=== PATIENT | male | born 1965 | race African-American/Black ===

== ENCOUNTER 2022-03-31 04:45 | Emergency (ER) | payer SELFPAY ==
[~2022-03-31] VITALS: Ht 185 cm; Wt 77.1 kg
[2022-03-31] MEDS ORDERED: NS IV 1000 ML 1,000 ML IV SCH (05:15)
--- NOTE | 2022-03-31 05:19 | ED General ---
General Chief Complaint: Respiratory Problems Stated Complaint: TROUBLE BREATHING Nursing Triage Note: Pt reports SOA x 1 week. Pt was seen at [facility] 3-4 days ago and tested - for covid. Denies CP, fever, or n/v. Source of Information: Patient History of Present Illness Date Seen by Provider: Mar 31, 2022 Time Seen by Provider: 04:48 Initial Comments 56-year-old male presenting with complaints of shortness of breath for over a week. He reports being seen at a [facility] 3 to 4 days ago and was tested negative for COVID at that time. He has been traveling a lot recently had been on a plane as well as a bus. He denies a pain or swelling in his legs. He feels like his abdomen is bloated and like he might be constipated. He states he has been having bowel movements but feels like his belly is full and has not been passing as much stool as usual. He denies fever or chills. He has increased shortness of breath when he tries to lay down. Exertion also makes him more short of breath. He denies having any history of COPD, asthma out, heart failure, high blood pressure, diabetes. He states he takes ctby-ltp-beukjdf medicine recently for his cough and shortness of breath but he has not been taking any prescription medications. Timing/Duration: 1 Week Severity: Moderate Modifying Factors: worse with Movement (activity makes him more short of breath) Associated Systoms: No Chest Pain; Cough; No Diaphoresis, No Fever/Chills, No Headaches, No Loss of Appetite; Malaise; No Nausea/Vomiting, No Rash, No Seizure; Shortness of Air; No Syncope, No Weakness Allergies and Home Medications Allergies Coded Allergies: No Known Allergies (Verified Allergy, Unknown, 03/31/22) Patient Home Medication List Home Medication List Reviewed: Yes Azithromycin (Azithromycin) 500 Mg Tablet, 500 MG PO DAILY Prescribed by: RICKI LLANES on 03/31/22740 Furosemide (Furosemide) 40 Mg Tablet, 40 MG PO DAILY Prescribed by: RICKI ZAIDIRT on 03/31/22740 Potassium Chloride (K-Tab ER) 20 Meq Tablet.er, 20 MEQ PO DAILY Prescribed by: RICKI LLANES on 03/31/22740 Review of Systems Review of Systems Constitutional: see HPI; No chills, No fever EENTM: No epistaxis, No nose congestion Respiratory: cough, dyspnea on exertion; No hemoptysis; short of breath; No s tridor, No wheezing Cardiovascular: No chest pain, No edema Gastrointestinal: see HPI Genitourinary: no symptoms reported Musculoskeletal: no symptoms reported Skin: No rash Psychiatric/Neurological: Denies Headache Hematologic/Lymphatic: Denies Blood Clots Past Niouopj-Qifvjq-Cfxwxf Hx Patient Social History Tobacco Use?: No Use of E-Cig and/or Vaping dev: No Substance use?: No Alcohol Use?: No Pt feels they are or have been: No Immunizations Up To Date First/Initial COVID19 Vaccinat: J&J November 2020 Physical Exam Vital Signs Vital Signs - First Documented 03/31/22 04:50 Temp 36.0 Pulse 106 Resp 20 B/P (MAP) 157/116 (130) Pulse Ox 98 O2 Delivery Room Air Capillary Refill : Less Than 3 Seconds Height, Weight, BMI Height: '" Weight: lbs. oz. kg; 22.00 BMI Method: General Appearance: No Apparent Distress, WD/WN HEENT: PERRL/EOMI, Pharynx Normal, Moist Mucous Membranes Neck: Full Range of Motion, Normal Inspection, Non Tender, Supple Respiratory: Chest Non Tender, Lungs Clear, Normal Breath Sounds, No Accessory Muscle Use, No Respiratory Distress Cardiovascular: No Edema, Normal Peripheral Pulses, Tachycardia Gastrointestinal: No Pulsatile Mass, Non Tender, Soft, Abnormal Bowel Sounds (Hyperactive) Rectal: Deferred Extremity: Normal Capillary Refill, Normal Inspection, Non Tender, No Calf Tenderness, No Pedal Edema Neurologic/Psychiatric: Alert, Oriented x3, pack worker supervisor II-XII Norm as Tested Skin: Normal Color, Warm/Dry Progress/Results/Core Measures Suspected Sepsis SIRS Temperature: Pulse: 106 Respiratory Rate: 20 Laboratory Tests 03/31/22 05:15: White Blood Count 10.2 Blood Pressure 157 /116 Mean: 130 Laboratory Tests 03/31/22 05:15: Creatinine 1.12, INR Comment 1.0, Platelet Count 273, Total Bilirubin 1.0 Results/Orders Lab Results Laboratory Tests Test 03/31/22 05:15 03/31/22 05:18 03/31/22 05:40 Range/Units White Blood Count 10.2 4.3-11.0 10^3/uL Red Blood Count 4.04 L 4.30-5.52 10^6/uL Hemoglobin 13.0 L 13.3-17.7 g/dL Hematocrit 38 L 40-54 % Mean Corpuscular Volume 95 80-99 fL Mean Corpuscular Hemoglobin 32 25-34 pg Mean Corpuscular Hemoglobin Concent 34 32-36 g/dL Red Cell Distribution Width 13.4 10.0-14.5 % Platelet Count 273 130-400 10^3/uL Mean Platelet Volume 10.8 9.0-12.2 fL Immature Granulocyte % (Auto) 0 % Neutrophils (%) (Auto) 63 42-75 % Lymphocytes (%) (Auto) 23 12-44 % Monocytes (%) (Auto) 10 0-12 % Eosinophils (%) (Auto) 3 0-10 % Basophils (%) (Auto) 1 0-10 % Neutrophils # (Auto) 6.5 1.8-7.8 10^3/uL Lymphocytes # (Auto) 2.3 1.0-4.0 10^3/uL Monocytes # (Auto) 1.1 H 0.0-1.0 10^3/uL Eosinophils # (Auto) 0.3 0.0-0.3 10^3/uL Basophils # (Auto) 0.1 0.0-0.1 10^3/uL Immature Granulocyte # (Auto) 0.0 0.0-0.1 10^3/uL Prothrombin Time 13.5 12.2-14.7 SEC INR Comment 1.0 0.8-1.4 Activated Partial Thromboplast Time 33 24-35 SEC Sodium Level 140 135-145 MMOL/L Potassium Level 3.8 3.6-5.0 MMOL/L Chloride Level 106 98-107 MMOL/L Carbon Dioxide Level 24 21-32 MMOL/L Anion Gap 10 5-14 MMOL/L Blood Urea Nitrogen 17 7-18 MG/DL Creatinine 1.12 0.60-1.30 MG/DL Estimat Glomerular Filtration Rate 78 BUN/Creatinine Ratio 15 Glucose Level 111 H 70-105 MG/DL Calcium Level 9.0 8.5-10.1 MG/DL Corrected Calcium 9.1 8.5-10.1 MG/DL Total Bilirubin 1.0 0.1-1.0 MG/DL Aspartate Amino Transf (AST/SGOT) 30 5-34 U/L Alanine Aminotransferase (ALT/SGPT) 19 0-55 U/L Alkaline Phosphatase 87 40-136 U/L Troponin I < 0.30 <0.30 NG/ML C-Reactive Protein 0.65 H <0.50 MG/DL Pro-B-Type Natriuretic Peptide 2791.0 H <75.0 PG/ML Total Protein 6.7 6.4-8.2 GM/DL Albumin 3.9 3.2-4.5 GM/DL SARS-CoV-2 RNA (RT-PCR) Not Detected Not Detecte Urine Color DARK YELLOW Urine Clarity CLEAR Urine pH 5.5 5-9 Urine Specific [place] >=1.030 1.016-1.022 Urine Protein 1+ H NEGATIVE Urine Glucose (UA) NEGATIVE NEGATIVE Urine Ketones NEGATIVE NEGATIVE Urine Nitrite NEGATIVE NEGATIVE Urine Bilirubin NEGATIVE NEGATIVE Urine Urobilinogen 0.2 < = 1.0 MG/DL Urine Leukocyte Esterase NEGATIVE NEGATIVE Urine RBC (Auto) NEGATIVE NEGATIVE Urine RBC NONE /HPF Urine WBC RARE /HPF Urine Squamous Epithelial Cells RARE /HPF Urine Crystals NONE /LPF Urine Bacteria NEGATIVE /HPF Urine Casts PRESENT /LPF Urine Hyaline Casts 2-5 H /LPF Urine Mucus LARGE H /LPF Urine Culture Indicated NO Urine Opiates Screen NEGATIVE NEGATIVE Urine Oxycodone Screen NEGATIVE NEGATIVE Urine Methadone Screen NEGATIVE NEGATIVE Urine Propoxyphene Screen NEGATIVE NEGATIVE Urine Barbiturates Screen NEGATIVE NEGATIVE Ur Tricyclic Antidepressants Screen NEGATIVE NEGATIVE Urine Phencyclidine Screen NEGATIVE NEGATIVE Urine Amphetamines Screen NEGATIVE NEGATIVE Urine Methamphetamines Screen POSITIVE H NEGATIVE Urine Benzodiazepines Screen NEGATIVE NEGATIVE Urine Cocaine Screen NEGATIVE NEGATIVE Urine Cannabinoids Screen NEGATIVE NEGATIVE My Orders Orders - RICKI LLANES MD Monitor-Rhythm Ecg Trace Only (03/31/22 05:06) Ed Iv/Invasive Line Start (03/31/22 05:06) Cbc With Automated Diff (03/31/22 05:06) Comprehensive Metabolic Panel (03/31/22 05:06) Crp Fs (03/31/22 05:06) Troponin I Fs (03/31/22 05:06) Protime With Inr (03/31/22 05:06) Partial Thromboplastin Time (03/31/22 05:06) Ekg Tracing (03/31/22 05:06) Ns Iv 1000 Ml (Sodium Chloride 0.9%) (03/31/22 05:15) Covid 19 Inhouse Test (03/31/22 05:06) Ct Nalini Chest/Noang Abd-Pelv W (03/31/22 05:06) Isolation Central Supply Req (03/31/22 05:06) Probnp Fs (03/31/22 05:06) Ua Culture If Indicated (03/31/22 05:06) Drug Screen Stat (Urine) (03/31/22 05:06) Benzonatate Capsule (Tessalon Perles) (03/31/22 05:52) Dexamethasone Injection (Decadron Inje (03/31/22 05:52) Iohexol Injection (Omnipaque 300 Mg/Ml 1 (03/31/22 06:45) Sodium Chloride Flush (Catheter Flush Sy (03/31/22 06:45) Ns (Ivpb) (Sodium Chloride 0.9% Ivpb Bag (03/31/22 06:45) Ceftriaxone 1 Gm Pre-Mix (Rocephin 1 Gm (03/31/22 07:31) Azithromycin Tablet (Zithromax Tablet) (03/31/22 07:31) Furosemide Injection (Lasix Injection) (03/31/22 07:31) Medications Given in ED Current Medications Medications Dose Ordered Sig/Brisa Route Start Time Stop Time Status Last Admin Dose Admin Sodium Chloride 100 ml ONCE ONCE IV 03/31/22 06:45 03/31/22 06:46 DC 03/31/22 06:38 80 ML Vital Signs/I&O 03/31/22 03/31/22 04:50 06:47 Temp 36.0 Pulse 106 107 Resp 20 22 B/P (MAP) 157/116 (130) 154/113 Pulse Ox 98 97 O2 Delivery Room Air Room Air Capillary Refill : Less Than 3 Seconds Blood Pressure Mean: 130 Progress Note #1: Progress Note We will recheck labs and tests similar to what he had done a few days ago and see if there is any specific abnormality to try treating in order to explain his symptoms. Since he has been doing a lot of traveling recently will obtain cardiac enzymes and EKG as well as a CT angiogram of his chest to look for signs of heart failure or blood clots. CT of the abdomen and pelvis with contrast to evaluate for constipation or blockage of his bowels. Try to normal saline 1 L IV fluid bolus for hydration Progress Note #2: Progress Note His electrocardiogram shows sinus tachycardia with a heart rate of 106 bpm. He has no acute ST elevation. CBC shows no elevation in his white blood cell count. His hemoglobin is 13 with normal platelets. He has a negative COVID swab. Awaiting coags, chemistry, urine and drug screen to see if there was other reasons for his shortness of breath. Once his creatinine is back you should be able to go for CT to evaluate for possible blood clots, pneumonia, abdominal mass, obstruction, colitis, diverticulitis, constipation. Progress Note #3: Time: 05:51 Progress Note Patient was complaining of continued cough and wanted something to help with his cough while waiting on test results. Will order dose of Tessalon Perles and a steroid to see if that might help. Has been blood pressure continues to be slightly elevated with systolic pressures in the 140s and diastolic pressure around 100 Progress Note #4: Time: 06:28 Progress Note Coags did not show any acute abnormality. His urinalysis showed some dehydration with elevated specific gravity greater than 1.030. Chemistry panel did not show any acute significant abnormality other than he had mild elevation of the CRP to 0.65. His troponin was less than 0.3. He did have an elevated proBNP of 2791. His urine drug screen did show positive for methamphetamines but not amphetamines. He did state that he had been taking bynh-bid-cdfpima cough and cold medicine so this could have been related to these epxr-xpm-buoqgpv medicines or it may be that he actually used Methamphetamines and they are coming out of his system so the Amphetamines did not show positive. Awaiting CT imaging. Progress Note #5: Time: 07:29 Progress Note Discussed with patient about the CT findings of heart failure as well as pneumonia on the right lung. No evidence of blood clots. Counseled that I recommended admission to the hospital to work-up his acute heart failure as well as his chronic mild elevation in the blood pressure. They would also be able to treat his pneumonia and help with the fluid and effusions in his lung. Patient stated he voiced understanding about what I was explaining to him but that he had things he had to get done before he could be admitted. Since he is traveling and just staying at hotel currently he did not feel he could go dire ctly from here to the hospital. He stated that he would prefer to have his family drive him to [place] and be admitted later today or tomorrow after he had gotten a few things done. When asked about the methamphetamines in his drug screen he denied using methamphetamines in the recent days. He states that he has used it in the past but its been at least several months. Again the methamphetamines may have been more of a false positive from using zrmb-nuz-kptczzu cough and cold medicine. However I still do not have an exact answer for his heart failure and pleural effusions whether this is related to his pneumonia or is from a recent cardiac event and again this would be part of why admitting him and having cardiology see him as well as the hospitalist would be the recommended action for him. Again he voiced understanding and despite offering him alternatives he continued to refuse admission currently and stated that he would try to do it later today or tomorrow. I did try to explain the benefits of being admitted currently and he continued to refuse and stated he will be admitted later but she could not be admitted right now. He would be signing out AGAINST MEDICAL ADVICE but I will start him on medical treatment and given instructions and information about the heart failure or pneumonia. With recommendations to Be admitted. ECG Initial ECG Impression Date: Mar 31, 2022 Initial ECG Impression Time: 05:09 Initial ECG Rate: 106 Initial ECG Rhythm: S.Tach Initial ECG Comparisson: No Previous ECG Available Comment Sinus tachycardia with a heart rate of 106 bpm. NV interval 186 ms. There is left atrial enlargement with borderline left axis deviation. He has nonspecific ST and T wave abnormalities with global T wave flattening. There is artifact on the tracing. His QT interval is 323 ms with a QTc interval 385 ms. There is no acute ST elevation. There is no prior tracing available for comparison. Diagnostic Imaging Diagonstic Imaging: CT Plain Films/CT/US/NM/MRI: chest, abdomen, pelvis Comments NAME: SJ JEAN MED REC#: [id number] PT STATUS: REG ER : 1965 PHYSICIAN: RICKI LLANES MD ADMIT DATE: 03/31/22/ER FS Draft Date of Exam:03/31/22 CT NALINI CHEST/NOANG ABD-PELV W INDICATION: short of breath, abd bloating, cough, PUI Covid CTA chest, abdomen and pelvis Thin axial sections through the chest, abdomen and pelvis are obtained following intravenous contrast bolus. Multiplanar MIP images were reconstructed and reviewed. All CT scans use one or more of the following dose optimizing techniques: automated exposure control, MA and/or KvP adjustment based on patient size and exam type or iterative reconstruction. INDICATION: Shortness of breath. History of COVID. FINDINGS: There are moderate bilateral pleural effusions. There is bilateral basilar atelectasis. Good opacification of pulmonary arteries. There are no filling defects to indicate pulmonary emboli. There is consolidated infiltrate in the right upper lobe centrally. No mediastinal or hilar adenopathy of pathologic size. No pericardial effusion. IMPRESSION: 1. No evidence of pulmonary emboli. 2. Consolidated infiltrate right upper lobe. 3. Moderate bilateral pleural effusions. Report was faxed to [facility] by amy at 6:47AM. Dictated on workstation # [id number] Dict: 03/31/2242 Trans: 03/31/22 0647 AMY [id number] Interpreted by: BEAN VALLECILLO MD Electronically signed by: Reviewed: Reviewed by Me Departure Impression Primary Impression: Pneumonia of right lung due to infectious organism Qualified Codes: J18.9 - Pneumonia, unspecified organism Additional Impressions: Dyspnea on exertion Congestive heart failure Qualified Codes: I50.9 - Heart failure, unspecified Bilateral pleural effusion Left against medical advice Disposition: 07 AGAINST MEDICAL ADVICE Condition: Against Medical Advice Departure-Patient Inst. Decision time for Depature: 07:37 Referrals: NO,LOCAL PHYSICIAN (PCP/Family) Primary Care Physician Patient Instructions: Heart Failure ED, Leaving Against Medical Advice, Pneumonia, Adult ED, Shortness of Breath, Adult ED Add. Discharge Instructions: You are leaving AGAINST MEDICAL ADVICE to be admitted for treatment of your pneumonia and heart failure. Make sure to take the antibiotics to treat for the pneumonia and the water pill or diuretic to help with the fluid in your lungs. Return or seek medical care immediately if you have worsening symptoms or more problems. If you go directly to [facility] in [place] they will have to start some of your test over but they will have access to all of your testing from this morning, and my notes about recommendation for admission. All discharge instructions reviewed with patient and/or family. Voiced understanding. Scripts Potassium Chloride (K-Tab ER) 20 Meq Tablet.er 20 MEQ PO DAILY for Heart Failure for 5 Days, #5 TAB 0 Refills Prov: ENYART,RICKI E MD 03/31/22 Furosemide (Furosemide) 40 Mg Tablet 40 MG PO DAILY for Heart Failure for 5 Days, #5 TAB 0 Refills Prov: RICKI LLANES MD 03/31/22 Azithromycin (Azithromycin) 500 Mg Tablet 500 MG PO DAILY for Pneumonia for 4 Days, #4 TAB 0 Refills Prov: RICKI LLANES MD 03/31/22 RICKI LLANES MD Mar 31, 2022 05:19
[2022-03-31 05:30] LABS: BASOPHILS # (AUTO) 0.1 10^3/uL (0.0-0.1); BASOPHILS % (AUTO) 1 % (0-10); EOSINOPHILS # (AUTO) 0.3 10^3/uL (0.0-0.3); EOSINOPHILS % (AUTO) 3 % (0-10); HEMATOCRIT 38 % (40-54); LYMPHOCYTES # (AUTO) 2.3 10^3/uL (1.0-4.0); LYMPHOCYTES % (AUTO) 23 % (12-44); MEAN CORPUSCULAR HEMOGLOBIN 32 pg (25-34); MEAN CORPUSCULAR HGB CONC 34 g/dL (32-36); MEAN CORPUSCULAR VOLUME 95 fL (80-99); MEAN PLATELET VOLUME 10.8 fL (9.0-12.2); MONOCYTES # (AUTO) 1.1 10^3/uL (0.0-1.0); MONOCYTES % (AUTO) 10 % (0-12); NEUTROPHILS # (AUTO) 6.5 10^3/uL (1.8-7.8); NEUTROPHILS % (AUTO) 63 % (42-75); PLATELET COUNT 273 10^3/uL (130-400); WHITE BLOOD COUNT 10.2 10^3/uL (4.3-11.0)
[2022-03-31] MEDS ORDERED: BENZONATATE 100 MG (TESSALON) CAPSULE PO STA (05:52)
[2022-03-31 05:56] LABS: BILIRUBIN,URINE NEGATIVE (NEGATIVE); CLARITY,URINE CLEAR; GLUCOSE, URINE (UA) NEGATIVE (NEGATIVE); KETONES,URINE NEGATIVE (NEGATIVE); LEUKOCYTE ESTERASE ,URINE NEGATIVE (NEGATIVE); NITRITE,URINE NEGATIVE (NEGATIVE); PH,URINE 5.5 (5-9); PROTEIN,URINE 1+ (NEGATIVE)
[2022-03-31 05:56] LABS: PROTHROMBIN TIME PATIENT 13.5 SEC (12.2-14.7)
[2022-03-31 06:07] LABS: AMPHETAMINE SCREEN, URINE NEGATIVE (NEGATIVE); BARBITURATE SCREEN URINE NEGATIVE (NEGATIVE); BENZODIAZEPINES SCREEN URINE NEGATIVE (NEGATIVE); CANNABINOID SCREEN, URINE NEGATIVE (NEGATIVE); COCAINE SCREEN URINE NEGATIVE (NEGATIVE); METHADONE STAT NEGATIVE (NEGATIVE); OPIATE SCREEN URINE NEGATIVE (NEGATIVE); OXYCODONE STAT NEGATIVE (NEGATIVE); PROPOXYPHENE STAT NEGATIVE (NEGATIVE); TRICYCLIC ANTIDEPRESSANTS SCRE NEGATIVE (NEGATIVE)
[2022-03-31 06:08] LABS: BACTERIA,URINE NEGATIVE /HPF; SQUAMOUS EPITHELIAL CELL,UR RARE /HPF; WBC,URINE RARE /HPF
[2022-03-31 06:09] LABS: COLOR,URINE DARK YELLOW
[2022-03-31 06:14] LABS: SODIUM 140 MMOL/L (135-145)
[2022-03-31 06:15] LABS: ALANINE AMINOTRANSFERASE 19 U/L (0-55); ALKALINE PHOSPHATASE 87 U/L (40-136); BUN/CREATININE RATIO 15; CARBON DIOXIDE 24 MMOL/L (21-32); CHLORIDE 106 MMOL/L (98-107); CREATININE SERUM 1.12 MG/DL (0.60-1.30); GFR ESTIMATED 78; GLUCOSE 111 MG/DL (70-105); POTASSIUM 3.8 MMOL/L (3.6-5.0)
[2022-03-31 06:16] LABS: ALBUMIN 3.9 GM/DL (3.2-4.5); TOTAL PROTEIN 6.7 GM/DL (6.4-8.2)
[2022-03-31] MEDS ORDERED: IOHEXOL 300 MG/ML 100 ML (OMNIPAQUE 300) VIAL IV ONE (06:45)
[2022-03-31] MEDS ORDERED: CATHETER FLUSH 10 ML SYR IV PRN (06:45)
[2022-03-31] MEDS ORDERED: NS 100 ML (IVPB) BAG IV ONE (06:45)
--- NOTE | 2022-03-31 06:48 | Diagnostic Imaging Report ---
INDICATION: short of breath, abd bloating, cough, PUI Covid CTA chest, abdomen and pelvis Thin axial sections through the chest, abdomen and pelvis are obtained following intravenous contrast bolus. Multiplanar MIP images were reconstructed and reviewed. All CT scans use one or more of the following dose optimizing techniques: automated exposure control, MA and/or KvP adjustment based on patient size and exam type or iterative reconstruction. INDICATION: Shortness of breath. History of COVID. FINDINGS: There are moderate bilateral pleural effusions. There is bilateral basilar atelectasis. Good opacification of pulmonary arteries. There are no filling defects to indicate pulmonary emboli. There is consolidated infiltrate in the right upper lobe centrally. No mediastinal or hilar adenopathy of pathologic size. No pericardial effusion. IMPRESSION: 1. No evidence of pulmonary emboli. 2. Consolidated infiltrate right upper lobe. 3. Moderate bilateral pleural effusions. Report was faxed to [facility] by farhan at 6:47AM. Dictated by: Dictated on workstation # [id number]
[2022-03-31] MEDS ORDERED: cefTRIAXone 1 GM PRE-MIX 50 ML IV STA (07:31)
[2022-03-31] MEDS ORDERED: AZITHROMYCIN 250 MG TAB (ZITHROMAX) PO STA (07:31)
[2022-03-31] MEDS ORDERED: FUROSEMIDE 40 MG/4 ML INJ (LASIX) IVP STA (07:31)
[2022-03-31] MEDS ORDERED: FURO40TA4 PO (07:41)
[2022-03-31] MEDS ORDERED: AZIT500T9 PO (07:41)
[2022-03-31] MEDS ORDERED: POTA-53 PO (07:41)
[2022-03-31 07:44] VITALS: BP 158/83
== END 2022-03-31 08:05 | disposition left against medical advice (07) ==
LOC: ER FS 04:51
DX: I50.9 Heart failure, unspecified (principal); J18.9 Pneumonia, unspecified organism; Z20.822 Contact with and (suspected) exposure to COVID-19; Z28.311 Partially vaccinated for COVID-19
CPT/HCPCS: 36415; 71275; 74177; 80053; 80306; 81000; 83880; 84484; 85025; 85610; 85730; 86141; 87636; 93005; 93041; 96374; 96375

== ENCOUNTER → 2023-02-20 | Outpatient (CLI) | payer BC ==
[~2023-02-20] MED LIST: AZIT500T9 PO; CATHETER FLUSH 10 ML SYR IVP PRN; FURO40TA4 PO; POTA-53 PO
[2023-02-20 09:37] VITALS: BP 143/93
--- NOTE | 2023-02-20 12:03 | Cardiology Stress Test Report ---
Stress Test Report Date of Procedure/Referring: Date of Procedure: February 20, 2023 PCP Ashely Hawkins MD Admitting Physician Admitting Physician: Attending Physician: Amber Jaimes MD Baseline Heart Rate: 70 Baseline Blood Pressure: Blood Pressure Systolic: 143 Blood Pressure Diastolic: 93 Vital Signs Date Time Temp Pulse Resp B/P (MAP) Pulse Ox O2 Delivery O2 Flow Rate FiO2 02/20/23 09:37 70 143/93 (110) Baseline Vital Signs Vital Signs Date Time Temp Pulse Resp B/P (MAP) Pulse Ox O2 Delivery O2 Flow Rate FiO2 02/20/23 09:37 70 143/93 (110) Baseline EKG: Baseline EKG: NSR Summary: After explaining the procedure and details to the patient, he signed the consent and was brought to the stress nuclear laboratory. Patient exercised on standard Luis protocol, EKG, heart rate and blood pressure were monitored continuously, resting and stress doses of radio tracer were injected, imaging was acquired and reviewed in the short axis, horizontal long a xis and vertical long axis views Patient was able to exercise for a total of 3 minutes on Luis protocol, METs 4.6 Maximum heart rate 146 Maximum blood pressure 230/133 Stress EKG, Minimal nondiagnostic changes Recovery EKG, Return to baseline TID: 1.07 SSS: 0 SDS: 0 EF: 38 Conclusion: Poor exercise tolerance for 3 minutes on standard Luis protocol, 4.6 METS achieving 88% of maximal expected heart rate Appropriate heart rate response to exercise with hypertensive response to exercise with peak blood pressure 230/133 return to baseline during recovery Nondiagnostic EKG changes with exercise return to baseline during recovery, occasional PVCs noted at peak stress level No significant ischemia or infarction noted on SPECT images Diffuse left ventricular hypokinesia with ejection fraction 38% Copy Copies To 1: [facility]/ AMBER JAIMES MD February 20, 2023 12:03
== END ==
LOC: CARD 08:53
PROVIDERS: ATTEND Internal Medicine Cardiovascular Disease
DX: I10 Essential (primary) hypertension (principal); I25.10 Atherosclerotic heart disease of native coronary artery without angina pectoris
CPT/HCPCS: 78452; 93017

== ENCOUNTER → 2023-02-21 | Outpatient (CLI) | payer BC ==
[~2023-02-21] MED LIST changes: -CATHETER FLUSH 10 ML SYR IVP PRN
== END ==
LOC: CARDFS 09:09
PROVIDERS: ATTEND Internal Medicine Cardiovascular Disease
DX: I11.9 Hypertensive heart disease without heart failure (principal); I34.0 Nonrheumatic mitral (valve) insufficiency; I25.10 Atherosclerotic heart disease of native coronary artery without angina pectoris
CPT/HCPCS: 93306